=== PATIENT | female | born 1955 | race Caucasian/White ===

== ENCOUNTER → 2019-04-23 | Day surgery (SDC) | payer BC, OTHER ==
[~2019-04-23] MED LIST: ALBUTEROL SULFATE 2.5 MG/3 ML NEBU. NEB PRN; ASPI81TA50 PO; ATROPINE 0.5 MG/5 ML DISP.SYRIN. IV PRN; CETI10TA22 PO; DOCU-109 PO; IV RINGERS SOLUTION,LACTATED 1,000 ML IV SCH; LIDOCAINE 2% PF Vial for OR 5 ML VIAL. ONE; NALOXONE 0.4 MG/ML VIAL. IV PRN; OMEP40CA5 PO; ONDANSETRON PF 4 MG/2 ML VIAL. IV PRN; PROPOFOL 20 ML IV ONE; diphenhydrAMINE 50 MG/ML VIAL IV PRN
[2019-04-23 13:35] VITALS: BP 128/76
== END | disposition home or self-care (01) ==
LOC: SURG 11:06
PROVIDERS: ATTEND Internal Medicine Gastroenterology
DX: K29.50 Unspecified chronic gastritis without bleeding (principal); B96.81 Helicobacter pylori [H. pylori] as the cause of diseases classified elsewhere; K21.0 Gastro-esophageal reflux disease with esophagitis; I25.10 Atherosclerotic heart disease of native coronary artery without angina pectoris; F41.9 Anxiety disorder, unspecified; Z98.890 Other specified postprocedural states
CPT/HCPCS: 43239; J2704; J7120; J2001